=== PATIENT | female | born 1975 | race Caucasian/White ===

== ENCOUNTER 2019-03-21 17:39 | Emergency (ER) | payer OTHER, MEDICAID ==
[~2019-03-21] VITALS: Ht 167.6 cm; Wt 47.6 kg
--- NOTE | 2019-03-21 17:40 | NUR ---
Patient to ER bed 3 to gown for evaluation. Side rails up. Report given to Alec MENDEZ.
[2019-03-21 17:49] VITALS: BP_SYST 123
[2019-03-21] MEDS ORDERED: LORazepam 1 MG TABLET PO ONE (18:15)
--- NOTE | 2019-03-21 18:32 | NUR ---
PATIENT PRESENTS TO THE ER WITH 2 HOUR HX OF DYSPNEA, DIZZINESS, RIGHT ARM NUMBNESS AND LOWER CHEST PAIN; CURRENTLY PATIENT STATES SYMPTOMS ARE RESOLVED SECONDARY TO TAKING BENEDRYL AT ONSET (25MG); NO TRAUMA, NO OTHER REMARKABLE S/S
[2019-03-21 18:40] LABS: BASOPHILS # (AUTO) 0.1 K/uL (0.0-0.2); BASOPHILS % (AUTO) 1.2 % (0.0-2.0); EOSINOPHILS # (AUTO) 0.1 K/uL (0.0-0.4); EOSINOPHILS % (AUTO) 2.3 % (0.0-4.0); HEMATOCRIT 38.7 % (36-48); HEMOGLOBIN 12.8 g/dL (12.0-16.0); LYMPHOCYTES # (AUTO) 1.3 K/uL (1.0-5.5); LYMPHOCYTES % (AUTO) 29.3 % (20.5-51.5); MEAN CORPUSCULAR HEMOGLOBIN 30 pg (27-31); MEAN CORPUSCULAR HGB CONC 33 % (32-36); MEAN CORPUSCULAR VOLUME 90 fL (79.0-98.0); MONOCYTES # (AUTO) 0.4 K/uL (0.0-1.0); MONOCYTES % (AUTO) 8.1 % (1.7-9.3); NEUTROPHILS # (AUTO) 2.6 K/uL (1.8-7.7); NEUTROPHILS % (AUTO) 59.1 % (40.0-70.0); PLATELET COUNT (AUTO) 239 K/uL (130-430); RED BLOOD CELL COUNT(AUTO) 4.29 MIL/uL (4.2-6.2); RED CELL DISTRIBUTION WIDTH 14.2 % (9.0-15.0); WHITE BLOOD COUNT (AUTO) 4.3 K/uL (4.8-10.8)
[2019-03-21 18:43] LABS: ANION GAP 5 (5-15); CALCIUM 9.3 mg/dL (8.4-11.0); CHLORIDE 95 mmol/L (98-107); CREATININE 0.73 mg/dL (0.55-1.30); GLUCOSE 101 mg/dL (70-99); POTASSIUM 3.9 mmol/L (3.5-5.1); SODIUM SERUM 131 mmol/L (136-145); UREA NITROGEN, BLOOD 9 mg/dL (8-21)
[2019-03-21 18:45] LABS: GFR AFRICAN AMERICAN 113 mL/min (>90)
[2019-03-21 18:52] LABS: ALANINE AMINOTRANSFERASE 19 U/L (12-78); ALBUMIN 4.4 g/dL (3.4-4.8); ASPARTATE AMINOTRANSFERASE 22 U/L (10-37); TOTAL BILIRUBIN 0.4 mg/dL (0.0-1.0)
--- NOTE | 2019-03-21 18:53 | NUR ---
PATIENT IS ON [employer] AND [employer]
[2019-03-21 19:35] VITALS: BP_SYST 130
--- NOTE | 2019-03-21 19:35 | NUR ---
Patient given written and verbal discharge instructions and verbalizes understanding. ER MD discussed with patient the results and treatment provided. Patient in stable condition. ID arm band removed. No IV no rx given. Patient educated on pain management and to follow up with PMD. Pain Scale 0/10. Opportunity for questions provided and answered.
== END 2019-03-21 19:35 | disposition home or self-care (01) ==
LOC: SED 17:39
DX: F41.9 Anxiety disorder, unspecified (principal); R06.02 Shortness of breath; Z88.8 Allergy status to other drugs, medicaments and biological substances
CPT/HCPCS: 36415; 71045; 80053; 84484; 85025; 93005; 99284